=== PATIENT | female | born 1980 | race Caucasian/White ===

== ENCOUNTER 2016-08-07 10:33 | Emergency (ER) | payer OTHER ==
[~2016-08-07] VITALS: Ht 157.5 cm; Wt 61.4 kg
[~2016-08-07 10:33] MED LIST: ASPI81TA3 PO; FELO10TA3 PO; FERR-83 PO; HYDR-4003 PO; HYDR50TA76 PO; MAGN400T23 PO; MYCO500T3 PO; NEPHVIT PO; ONDA8TAB10 PO; PRD5T PO; SEVE800T7 PO; TACR1CAP8 PO
[2016-08-07 10:46] VITALS: BP 130/77; PULSE 86; O2SAT 100
--- NOTE | 2016-08-07 11:10 | ED.REPORT ---
HPI-General Illness Date of Service Aug 07, 2016 ED Provider: Konrad Adams DO A 36 year old female with a history of ESRD and glomerulonephritis presents to the ED complaining of a displaced catheter that occurred earlier today. Patient was able to receive a full run of dialysis yesterday. She believes that the catheter is displaced by approx.1 in. Patient denies any other medical complaints at this time. Nursing Notes Stated Complaint: PORT CATH COMING OUT Chief Complaint: General Complaint Nursing Notes Reviewed: Yes Allergies: Coded Allergies: TAPE (Verified Allergy, Severe, rash, 08/07/16) chlorhexidine (Unverified Adverse Reaction, Severe, itching/rash, 06/30/16 ) gentamicin (Unverified Adverse Reaction, Severe, itching, 06/30/16) meperidine (Verified Adverse Reaction, Severe, hallucinations, behavior out of control, 06/30/16) Scheduled Aspirin Chew (Aspirin Chew) 81 Mg Chew 81 MG PO DAILY Felodipine ER (Felodipine ER) 10 Mg Tab.er.24h 10 MG PO BID Hold for SBP less then 140 Ferrous Sulfate (Ferrous Sulfate) 325 Mg Tablet 325 MG PO DAILY Magnesium Oxide (Mag-Oxide) 400 Mg Tablet 400 MG PO DAILY Mycophenolate Mofetil (Mycophenolate Mofetil) 500 Mg Tablet 500 MG PO BID Prednisone (PredniSONE) 5 Mg Tab 5 MG PO DAILY Tacrolimus (Tacrolimus) 1 Mg Capsule 3 MG PO BID Scheduled PRN Hydrocodone-Acetaminophen 5-325 mg (Hydrocodone-Acetaminophen 5-325 mg) 1 Each Tablet 1 TABLET PO Q4H PRN PRN For Pain Hydroxyzine HCl (HydrOXYzine Hcl) 50 Mg Tablet 50 MG PO TID PRN PRN For Itching Ondansetron ODT (Ondansetron ODT) 8 Mg Tab.rapdis 8 MG PO Q6H PRN PRN For Nausea Sevelamer Carbonate (Renvela) 800 Mg Tablet 800 MG PO TID PRN PRN DIRECTED Vitamin B Complex/Vit C (Sofia-Rajinder Tablet) 1 Tab Tab 1 TAB PO DIRECTED PRN PRN HEALTH General Time Seen by MD: 11:09 Chief Complaint Other (Catheter Complication ) Hx Obtained From: Patient Arrived By: Walk-in Sudden in Onset?: No Onset Occurred: Yesterday Symptom Duration: Since onset Pertinent Negative: Pt denies other symptoms Recent Healthcare: Recent doctor visit, Recent hospitalization Past Medical History Past Medical History Notes: Nephrology: Dr. Cynthia Khoury - [facility] - Past Medical History 1. Prior end-stage renal disease as noted above secondary to a complex glomerulonephritis. 2. Brief transient hemodialysis in childhood. 3. Status post living related donor renal transplant (from her mother) at [facility] in 1996. 4. 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 5. Chronic hypertension. 6. Anemia. 7. History of C. difficile colitis. 8. Chronic immunosuppression. 9. History of MRSA (chart history) 10. chronic kidney disease 11. metabolic acidosis 12. UTI Past Surgical History Kidney transplant - 1996 AV fistula placement Left brachial basilic dialysis graft. Family History Noncontributory Smoking History Never Smoker Social History Alcohol Use: Denies alcohol use Drug Use: Denies drug use Other Social History: Good social support, Local resident Ambulatory Status Independent Review of Systems Pt reports catheter out of place. Full Review of Systems Constitutional: Denies: Chills, Fever Respiratory: Denies: Shortness of breath Cardiovascular: Denies: Chest pain GI: Denies: Abdominal pain, Nausea, Vomiting Neurologic: Denies: Change LOC Complete sys rev & neg: except as marked. Physical Exam Vital Signs Vital Signs Date Time Temp Pulse Resp B/P Pulse Ox O2 Delivery O2 Flow Rate FiO2 08/07/16 12:39 36.7 88 14 136/72 100 Room Air 08/07/16 10:46 36.6 86 130/77 100 Initial VS: Reviewed Head / Eyes: Atraumatic, Normocephalic, PERRL Respiratory: Breath sounds normal, Clear to auscultation, No respiratory distress Cardiovascular: Regular rate & rhythm, Heart sounds normal, Intact distal pulses Extremities: Vascular intact, Neuro intact, No swelling, No tenderness Skin: Warm, Dry, No cyanosis Neurologic: Alert, Oriented, Nonfocal Psychiatric: Mood/affect normal, Behavior normal, Normal thought content General/Constitutional: Awake, Alert Abdomen: Atraumatic, Soft ABDOMEN: Dialysis catheter in place Area is clean, dry and intact without signs of infection Interpretation & Diagnostics X-Ray Abdominal Interpretation IMPRESSION: Large bore right central venous catheter as above with the tip projecting in the IVC below the diaphragm. Dictated by: Danny Tracy M.D. on 08/07/2016 at 12:17 Interpretation / Wet Read by: Interpret - Radiologist Procedures Catheter secure stitches 1229 Performed by ky Patient consent 2 sutures 4-0 nylon Distal part of catheter to hold in place Time out performed Patient tolerates procedure well Re-Eval/Medical Decision Med Decision/Clinical Course Concern for catheter dislodgment, x-ray confirms appropriate placement. The patient and her mother are requesting that the catheter be sutured to the skin. It was sutured using 4-0 nylon. Otherwise the catheter was not manipulated in any way. No signs of infection or other acute pathology. Patient will be discharged. Time of Eval: 12:04 Patient Status: Condition improved Re-Evaluation/Progress Note: Patient is rechecked. She is informed of her X-ray results. All of the patient's questions are addressed. She understands and agrees with the treatment plan. Time of Eval: 12:29 Patient Status: Condition improved Re-Evaluation/Progress Note: Patient is rechecked. Sutures placed. Patient tolerates procedure well. Counseled Regarding: Diagnosis, Need for follow-up, When/why to return to ED Discharge & Departure Primary Impression: Encounter for dialysis catheter care Disposition: Home Discharge Condition All VS Reviewed: Yes Condition: Stable Additional Instructions: Your catheter is in good position, sutures were placed in order to prevent it from coming out anymore. Follow-up as routinely planned and return to the ER as needed. Referrals: Rebecca Aguila PA-C (PCP) Scribe Attestation Portions of this note were transcribed by Po Allen. I, Dr. Adams personally performed the history, physical exam and medical decision-making; I reviewed and confirmed the accuracy of the information in the transcribed note. Signed by: Po Allen, 08/07/16, 0100. copies to: Rebecca Aguila PA-C, Timothy S DO Aug 07, 2016 11:10 PO ALLEN Aug 07, 2016 11:34
--- NOTE | 2016-08-07 12:18 | DRSVH ---
PROCEDURE: X-RAY ABDOMEN, ONE VIEW ([id number]) INDICATIONS: evaluate placement of right Femoral dialysis cath TECHNIQUE: One view of the abdomen acquired. COMPARISON: None. FINDINGS: Surgical changes and devices: Right femoral large Bohr central venous catheter with the tip projectin g in the IVC below the diaphragm Bowel: Bowel gas pattern is normal. Soft tissues: No suspicious abdominal calcifications. Visualized solid organ contours appear normal in size. Bones: No suspicious bony lesions. IMPRESSION: Large bore right central venous catheter as above with the tip projecting in the IVC belo w the diaphragm. Dictated by: Danny Tracy M.D. on 08/07/2016 at 12:17 Approved by: Danny Tracy M.D. on 08/07/2016 at 12:17
[2016-08-07 12:39] VITALS: BP 136/72; PULSE 88; RESP 14; O2SAT 100
== END 2016-08-07 12:40 | disposition home or self-care (01) ==
LOC: SED 10:33
DX: T82.42XA Displacement of vascular dialysis catheter, initial encounter (principal); Y84.1 Kidney dialysis as the cause of abnormal reaction of the patient, or of later complication, without mention of misadventure at the time of the procedure; Y93.89 Activity, other specified; Y99.8 Other external cause status; Y92.9 Unspecified place or not applicable; I12.0 Hypertensive chronic kidney disease with stage 5 chronic kidney disease or end stage renal disease; N18.6 End stage renal disease; Z86.19 Personal history of other infectious and parasitic diseases; Z99.2 Dependence on renal dialysis; Z79.82 Long term (current) use of aspirin; Z86.14 Personal history of Methicillin resistant Staphylococcus aureus infection; Z87.440 Personal history of urinary (tract) infections; Z94.0 Kidney transplant status; Z79.52 Long term (current) use of systemic steroids; Z88.8 Allergy status to other drugs, medicaments and biological substances

== ENCOUNTER 2016-08-25 21:54 | Emergency (ER) | payer OTHER ==
[2016-08-25 22:01] VITALS: BP 126/76; PULSE 88; RESP 16; O2SAT 98
--- NOTE | 2016-08-25 22:26 | ED.REPORT ---
HPI-General Illness Date of Service Aug 25, 2016 ED Provider: Dr. Wolf Pt is a 36 year old female with a hx of end-stage renal disease presenting to the ED via EMS complaining of a wound on her left forearm. Associated symptoms include nausea, States she gets nauseated when she sees the wound. Not having fevers. . Pt reports that she had a graft for dialysis placed 2015 and that it has not healed and continues to ooze. Was seen in Wound Care today. Wound culture is pending, is to get vanco with dialysis tomorrow. Not anticoagulated. She reports that she rescheduled her dialysis appointment for tomorrow. Wound care discharged her with a plan of continued dressing changes and possible antibiotics guided by nephrology. She is concerned today about oozing, which I am told has not changed. Presents with her suitcase expecting admission. MARY report suggests frequent ED use. Nursing Notes Stated Complaint: LEFT FOREARM WOUND Chief Complaint: General Complaint Nursing Notes Reviewed: Yes Allergies: Coded Allergies: TAPE (Verified Allergy, Severe, rash, 08/07/16) chlorhexidine (Unverified Adverse Reaction, Severe, itching/rash, 06/30/16 ) gentamicin (Unverified Adverse Reaction, Severe, itching, 06/30/16) meperidine (Verified Adverse Reaction, Severe, hallucinations, behavior out of control, 06/30/16) Scheduled Aspirin Chew (Aspirin Chew) 81 Mg Chew 81 MG PO DAILY Felodipine ER (Felodipine ER) 10 Mg Tab.er.24h 10 MG PO BID Hold for SBP less then 140 Ferrous Sulfate (Ferrous Sulfate) 325 Mg Tablet 325 MG PO DAILY Magnesium Oxide (Mag-Oxide) 400 Mg Tablet 400 MG PO DAILY Mycophenolate Mofetil (Mycophenolate Mofetil) 500 Mg Tablet 500 MG PO BID Prednisone (PredniSONE) 5 Mg Tab 5 MG PO DAILY Tacrolimus (Tacrolimus) 1 Mg Capsule 3 MG PO BID Scheduled PRN Hydrocodone-Acetaminophen 5-325 mg (Hydrocodone-Acetaminophen 5-325 mg) 1 Each Tablet 1 TABLET PO Q4H PRN PRN For Pain Hydroxyzine HCl (HydrOXYzine Hcl) 50 Mg Tablet 50 MG PO TID PRN PRN For Itching Ondansetron ODT (Ondansetron ODT) 8 Mg Tab.rapdis 8 MG PO Q6H PRN PRN For Nausea Sevelamer Carbonate (Renvela) 800 Mg Tablet 800 MG PO TID PRN PRN DIRECTED Vitamin B Complex/Vit C (Sofia-Rajinder Tablet) 1 Tab Tab 1 TAB PO DIRECTED PRN PRN HEALTH General Time Seen by MD: 22:25 Chief Complaint Other (Wound Care) Hx Obtained From: Patient Arrived By: Walk-in Sudden in Onset?: No Onset Occurred: Onset unknown Symptom Duration: Since onset Location: : Arm left: Forearm left Quality: Painful Severity: Current: Mild Severity: Maximum: Mild Recent Healthcare: No recent hospitalization, Recent doctor visit Similar Sx Previous: Yes Past Medical History Past Medical History Notes: Nephrology: Dr. Cynthia Khoury - [facility] - Past Medical History 1. Prior end-stage renal disease as noted above secondary to a complex glomerulonephritis. 2. Brief transient hemodialysis in childhood. 3. Status post living related donor renal transplant (from her mother) at [facility] in 1996. 4. 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 5. Chronic hypertension. 6. Anemia. 7. History of C. difficile colitis. 8. Chronic immunosuppression. 9. History of MRSA (chart history) 10. chronic kidney disease 11. metabolic acidosis 12. UTI Past Surgical History Kidney transplant - 1996 AV fistula placement Left brachial basilic dialysis graft. Family History Noncontributory Smoking History Never Smoker Social History Alcohol Use: Denies alcohol use Drug Use: Denies drug use Other Social History: Good social support, Local resident Ambulatory Status Independent Review of Systems Full Review of Systems Constitutional: Denies: Fever GI: Reports: Nausea Skin: Reports Rash, Reports Swelling Complete sys rev & neg: except as marked. Physical Exam Vital Signs Vital Signs Date Time Temp Pulse Resp B/P Pulse Ox O2 Delivery O2 Flow Rate FiO2 08/25/16 22:01 36.4 88 16 126/76 98 Room Air Initial VS: Reviewed General/Constitutional: Well-developed, Well-nourished Head / Eyes: Atraumatic, Normocephalic, PERRL ENT: Mucous membranes moist, Conjunctiva normal, No scleral icterus Neck: Supple, Non-tender, Full range of motion Respiratory: Breath sounds normal, Clear to auscultation, No respiratory distress Abdomen / GI: No distention Extremities: Vascular intact, Neuro intact Neurologic: Alert, Oriented, Nonfocal Psychiatric: Mood/affect normal, Behavior normal, Normal thought content Skin: Warm Extensive superficial wound on left forearm. Covered with occlusive dressing and gauze, mostly intact with a small amount of blood on it. Minimal oozing. Procedures Skin: Wound / Burn Check Skin: Wound/Burn Check: 2240: Time out performed. Redressed extensive superficial left forearm wound. Location: Left forearm Normal Wound / Burn Check: No apparent infection Palpation Abnormal: Area warm Re-Eval/Medical Decision Med Decision/Clinical Course The frequent ED visitor presenting with a chronic left upper extremity wound. There is a very minimal amount of oozing from a superficial ulceration. Patient arrives by ambulance and seems to expect a hospitalization tonight. I see no indication for an acute care admission, her dressings changed patient is discharged home to continue with previous care Time of Eval: 22:56 Patient Status: Condition improved Re-Evaluation/Progress Note: Discussed plan for discharge. Pt understands and agrees with plan. All pt questions addressed. Counseled Regarding: Diagnosis, Lab results, Need for follow-up, When/why to return to ED Discharge & Departure Primary Impression: Chronic wound of extremity Disposition: Home Discharge Condition All VS Reviewed: Yes Condition: Improved Additional Instructions: Change the dressing on left arm daily. Use vaseline guaze, then an absorbent pad and then roller gauze. , follow up with your kidney doctor tomorrow for makeup dialysis session. Continue previous home medications. Referrals: Rebecca Aguila PA-C (PCP) Cynthia Khoury MD Attestation Portions of this note were transcribed by Vernell Loya. I, Dr. Wolf personally performed the history, physical exam and medical decision-making; I reviewed and confirmed the accuracy of the information in the transcribed note. Signed by : Sumi Agee, 08/25/2016 and [id number]. copies to: Rebecca Aguila PA-C; Cynthia Khoury MD, Donald L MD Aug 25, 2016 22:26 VERNELL LOYA Aug 25, 2016 22:44
== END 2016-08-25 23:00 | disposition home or self-care (01) ==
LOC: SED 21:54
DX: S51.802A Unspecified open wound of left forearm, initial encounter (principal); X58.XXXA Exposure to other specified factors, initial encounter; Y93.89 Activity, other specified; Y92.9 Unspecified place or not applicable; Y99.8 Other external cause status; N18.6 End stage renal disease; I12.0 Hypertensive chronic kidney disease with stage 5 chronic kidney disease or end stage renal disease; D63.1 Anemia in chronic kidney disease; Z79.82 Long term (current) use of aspirin; Z88.1 Allergy status to other antibiotic agents

== ENCOUNTER 2016-09-29 15:51 | Emergency (ER) | payer OTHER ==
[~2016-09-29] VITALS: Ht 154.9 cm; Wt 73.6 kg
[2016-09-29 15:59] VITALS: BP 129/76; PULSE 99; RESP 14; O2SAT 100
--- NOTE | 2016-09-29 17:37 | ED.REPORT ---
HPI-General Illness Date of Service Sep 29, 2016 ED Provider: Alex Clay MD This is a 36 year old female with a history of history of ESRD on hemodialysis, HTN, anemia, chronic immunosuppression, s/p kidney transplant presenting to the emergency department due to dialysis catheter malfunction. Pt sent from dialysis appointment, staff reported that dysfunction of femoral dialysis access catheter, unable to dialyze today. Catheter placement by Dr. Nacho Kenney. Pt currently on heparin. She denies fever, chills, nausea, vomiting, or abdominal pain. Nursing Notes Stated Complaint: CATHETER COMING OUT/SENT FROM DIALYSIS Chief Complaint: General Complaint Nursing Notes Reviewed: Yes ([employer] Appraisals not reconciled - EMR indicates warfarin use) Allergies: Coded Allergies: TAPE (Verified Allergy, Severe, rash, 08/07/16) chlorhexidine (Unverified Adverse Reaction, Severe, itching/rash, 06/30/16 ) gentamicin (Unverified Adverse Reaction, Severe, itching, 06/30/16) meperidine (Verified Adverse Reaction, Severe, hallucinations, behavior out of control, 06/30/16) Scheduled Aspirin Chew (Aspirin Chew) 81 Mg Chew 81 MG PO DAILY Felodipine ER (Felodipine ER) 10 Mg Tab.er.24h 10 MG PO BID Hold for SBP less then 140 Ferrous Sulfate (Ferrous Sulfate) 325 Mg Tablet 325 MG PO DAILY Magnesium Oxide (Mag-Oxide) 400 Mg Tablet 400 MG PO DAILY Mycophenolate Mofetil (Mycophenolate Mofetil) 500 Mg Tablet 500 MG PO BID Prednisone (PredniSONE) 5 Mg Tab 5 MG PO DAILY Tacrolimus (Tacrolimus) 1 Mg Capsule 3 MG PO BID Scheduled PRN Hydrocodone-Acetaminophen 5-325 mg (Hydrocodone-Acetaminophen 5-325 mg) 1 Each Tablet 1 TABLET PO Q4H PRN PRN For Pain Hydroxyzine HCl (HydrOXYzine Hcl) 50 Mg Tablet 50 MG PO TID PRN PRN For Itching Ondansetron ODT (Ondansetron ODT) 8 Mg Tab.rapdis 8 MG PO Q6H PRN PRN For Nausea Sevelamer Carbonate (Renvela) 800 Mg Tablet 800 MG PO TID PRN PRN DIRECTED Vitamin B Complex/Vit C (Sofia-Rajinder Tablet) 1 Tab Tab 1 TAB PO DIRECTED PRN PRN HEALTH General Time Seen by MD: 17:26 Chief Complaint Other Hx Obtained From: Patient Arrived By: Walk-in Sudden in Onset?: Yes Onset Occurred: Just prior to arrival Symptom Duration: Since onset Severity: Current: No pain currently Pertinent Negative: Pt denies other symptoms Recent Healthcare: Recent doctor visit Similar Sx Previous: No Past Medical History Past Medical History Notes: Nephrology: Dr. Cynthia Khoury - [facility] - Past Medical History 1. Prior end-stage renal disease as noted above secondary to a complex glomerulonephritis. 2. Brief transient hemodialysis in childhood. 3. Status post living related donor renal transplant (from her mother) at [facility] in 1996. 4. 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 5. Chronic hypertension. 6. Anemia. 7. History of C. difficile colitis. 8. Chronic immunosuppression. 9. History of MRSA (chart history) 10. chronic kidney disease 11. metabolic acidosis 12. UTI Past Surgical History Kidney transplant - 1996 AV fistula placement Left brachial basilic dialysis graft. Family History Noncontributory Smoking History Never Smoker Social History Alcohol Use: Denies alcohol use Drug Use: Denies drug use Other Social History: Good social support, Local resident Ambulatory Status Independent Review of Systems Full Review of Systems Constitutional: Denies: Chills, Fever, Malaise Respiratory: Denies: Non-productive cough, Shortness of breath Cardiovascular: Denies: Chest pain GI: Denies: Nausea, Vomiting Neurologic: Denies: Headache Complete sys rev & neg: except as marked. Physical Exam Vital Signs Vital Signs Date Time Temp Pulse Resp B/P Pulse Ox O2 Delivery O2 Flow Rate FiO2 09/29/16 15:59 36.8 99 14 129/76 100 Room Air Initial VS: Reviewed, Vital signs normal Head / Eyes: Atraumatic, Normocephalic, PERRL ENT: Mucous membranes moist, Conjunctiva normal, No scleral icterus Neck: Supple, Non-tender, Full range of motion Respiratory: Breath sounds normal, Clear to auscultation, No respiratory distress Cardiovascular: Regular rate & rhythm, Heart sounds normal, Intact distal pulses Abdomen / GI: Soft, Non-tender, No guarding, No rebound, No distention Skin: Warm, Dry, No cyanosis Neurologic: Alert, Oriented, Nonfocal Psychiatric: Mood/affect normal, Behavior normal, Normal thought content General/Constitutional: Awake, Alert Anxious but not in physical distress. Upper Extremities Upper Extremity / MS: Full range of motion L arm is dressed, bandanged not removed. Wound care has seen the pt in the ED, please see their ntoes. Fistula scars present on right upper extremity. Lower Extremity / Pelvis / MS: Neurologic intact, Vascular intact Tunneled femoral catheter in R leg. Interpretation & Diagnostics Lab Results Interpretation Lab Results Interpretation: Laboratory testing not indicated Re-Eval/Medical Decision Med Decision/Clinical Course This is a 36-year-old female sent over from dialysis having her port that the access catheter was coming out. The patient very difficult access, and has a tunneled right femoral dialysis access catheter. It turns out the sutures had come out, and apparently the catheter backed out several inches. It was palpable into the groin, and there she was able to have successful dialysis-but I did not know the length. The catheter being placed by surgery by Dr. Alexander Kenney, so consulted Dr. Brandon who saw the patient is able determine is a 40 cm so it has not backed out enough to become nonfunctional he confirms the catheter can simply be resutured in place. I therefore anesthetized the suture sites with it again with epinephrine, and used a 2-0 nylon to suture the catheter in place following a chlorhexidine skin prep, and re-bandaging of the catheter. Additionally wound care nurse came and saw the patient for chronic left upper extremity wound, and re-bandaged it prior to my seeing the patient-so I did not take down further bandaging. She does need to follow-up the wound care center. Apparently cultures were taken earlier today. This is a chronic wound she has no acute complaints. The patient is being discharged back to home in improved condition. Source of Hx: Old records Time of Eval: 18:36 Re-Evaluation/Progress Note: Femoral catheter management. Plan for d/c Consultation : Referral / Consult Name: Troy Brandon MD Consulted With: Surgeon Call Returned at: 17:47 Epic Radiant Analyst: Agrees with eval, Agrees with plan Counseled Regarding: Diagnosis, Lab results, Need for follow-up, When/why to return to ED Discharge & Departure Primary Impression: Encounter for dialysis catheter care Additional Impression: Chronic wound of extremity Disposition: Home Discharge Condition All VS Reviewed: Yes Condition: Stable Additional Instructions: 1. Your dialysis access catheter sutures had come undone and the access catheter was starting to pull out. However you were seen by the surgeon Dr. Brandon and the catheter is still in adequate position, and I have we sutured it in place using a larger, stronger suture. Continue current catheter care. 2. You were seen by the intelligence research specialist who has redressed your left arm. 3. Follow-up with your regular scheduled dialysis. Follow-up with the wound care center. 4. Return if new or worsening symptoms Referrals: Rebecca Aguila PA-C (PCP) Scribvirgie Attestation Portions of this note were transcribed by Francisco Anderson. I, Dr. Clay personally performed the history, physical exam and medical decision-making; I reviewed and confirmed the accuracy of the information in the transcribed note. Signed by Sumi Finn, 09/29/2016 at 17:00. Alex Clay MD Sep 29, 2016 17:37 FRANCISCO ANDERSON Sep 29, 2016 17:43
--- NOTE | 2016-09-29 18:15 | NUR ---
Wound Care wound care orders received, patient seen in ED. 36 yo female well known to wound center for treatment of left forearm and upper arm wound. Presents to ED for dialysis catheter complication, wound care asked to see patient as she was supposed to be seen in wound center today. Left forearm wound measurement: (length x width x depth) 24.0 x 8.0 x 0.1 cm Tunneling: None Undermining: None Wound assessment: Epithelialization: less than 100% Fibrin amount: 76-100% Granulation color: Red and firm Periwound appearance: Erythema and increased warmth noted irregularly around wound approximately 2-3 inches Drainage and amount: Large amount of serosanguineous drainage with blood tinging Wound is negative for color odor, eschar, exposed bone and exposed tendon /ligament Wound cleaned and redressed with Unna wrap and skin protector sleeve. Instructed to keep dressing in place till follow up appt at the wound center 10/06/16.
== END 2016-09-29 19:26 | disposition home or self-care (01) ==
LOC: SED 15:51
DX: Z49.02 Encounter for fitting and adjustment of peritoneal dialysis catheter (principal); S41.102D Unspecified open wound of left upper arm, subsequent encounter; X58.XXXD Exposure to other specified factors, subsequent encounter; Y92.9 Unspecified place or not applicable; Y93.9 Activity, unspecified; Y99.9 Unspecified external cause status; I12.0 Hypertensive chronic kidney disease with stage 5 chronic kidney disease or end stage renal disease; N18.6 End stage renal disease; D63.1 Anemia in chronic kidney disease; Z79.4 Long term (current) use of insulin; Z99.2 Dependence on renal dialysis; Z86.14 Personal history of Methicillin resistant Staphylococcus aureus infection; Z79.82 Long term (current) use of aspirin; Z79.899 Other long term (current) drug therapy; Z88.1 Allergy status to other antibiotic agents; Z88.3 Allergy status to other anti-infective agents; Z88.5 Allergy status to narcotic agent